=== PATIENT | female | born 1930 | race Caucasian/White ===

== ENCOUNTER 2020-04-14 22:58 | Inpatient (IN) | payer MEDICARE, MEDICAID ==
[~2020-04-14] VITALS: Ht 154.9 cm; Wt 91.2 kg
[2020-04-14] MEDS ORDERED: MORPHINE SULFATE 4 MG/ML CPJ (NOT FOR IM USE) IV STA (23:17)
[2020-04-14] MEDS ORDERED: ONDANSETRON HCL 4MG/2ML INJ IV STA (23:17)
[2020-04-14 23:46] LABS: BASOPHILS % 0.6 % (0.0-2.0); EOSINOPHILS % 2.5 % (0.0-5.0); HEMATOCRIT. 33.4 % (36.0-48.0); HEMOGLOBIN. 10.8 g/dL (12.0-16.0); LYMPHOCYTES % 25.5 % (20.0-50.0); MEAN CORPUSCULAR HEMOGLOBIN 27.3 pg (28.0-32.0); MEAN PLATELET VOLUME 8.9 fl (7.4-10.4); MONOCYTES % 4.6 % (2.0-8.0); NEUTROPHILS % 66.8 % (40.0-76.0); PLATELET 529 x1000/uL (130-400); RED BLOOD CELL COUNT 3.93 mill/uL (4.2-5.4)
[2020-04-14 23:50] LABS: CHLORIDE 101 mEq/L (98-107)
[2020-04-14] MEDS: NITROGLYCERIN 0.4MG TABLET SL SL PRN ×2 (23:50→23:55)
[2020-04-14 23:55] LABS: PARTIAL THROMBOPLASTIN TIME 27.1 sec (23.4-31.0); PROTHROMBIN TIME 10.2 sec (9.6-11.0)
[2020-04-15] MEDS ORDERED: HYDROMORPHONE HCL/PF 2MG/ML CPJ IV ONE
[2020-04-15] MEDS ORDERED: FUROSEMIDE 100MG/10ML VIAL IVP SCH (00:15)
[2020-04-15] MEDS ORDERED: NITROGLYCERIN 50MG PREMIX 250 ML IV ONE (00:15)
[2020-04-15] MEDS ORDERED: CALCIUM GLUCONATE 100MG/ML 10ML VIAL IV SCH (01:00)
[2020-04-15 08:00] VITALS: BP 145/60
[2020-04-15 08:30] VITALS: BP 136/74
[2020-04-15] MEDS ORDERED: ACETAMINOPHEN 325MG TABLET PO PRN (09:30)
[2020-04-15] MEDS ORDERED: ONDANSETRON HCL 4MG/2ML INJ IV PRN (09:30)
[2020-04-15] MEDS ORDERED: DEXTROSE 50% WATER 50ML SYRINGE IV PRN (09:30)
[2020-04-15 12:00] VITALS: BP 137/64
[2020-04-15] MEDS: BLOOD SUGAR DIAGNOSTIC STRIP TEST SCH ×3 (12:33→21:07)
[2020-04-15] MEDS: INSULIN LISPRO 100 UNITS/ML SUBCUT SCH ×3 (12:40→21:00)
[2020-04-15 16:00] VITALS: BP 133/68
[2020-04-15] MEDS: FUROSEMIDE 40MG/4ML VIAL IVP SCH (17:41)
[2020-04-15 20:00] VITALS: BP 100/52
[2020-04-15] MEDS: ENOXAPARIN 100MG/ML SYR SUBCUT SCH (21:43)
[2020-04-16] VITALS (7 sets, daily range): BP systolic 103–156; BP diastolic 50–74
[2020-04-16] MEDS: INSULIN LISPRO 100 UNITS/ML SUBCUT SCH ×4 (06:00→21:00)
[2020-04-16] MEDS: BLOOD SUGAR DIAGNOSTIC STRIP TEST SCH ×4 (06:30→21:18)
[2020-04-16] MEDS ORDERED: ENOXAPARIN 100MG/ML SYR SUBCUT SCH (08:45)
[2020-04-16] MEDS: FUROSEMIDE 40MG/4ML VIAL IVP SCH ×2 (09:25→15:23)
[2020-04-16] MEDS: ASPIRIN 81MG TABLET PO SCH (09:25)
[2020-04-16] MEDS: CLOPIDOGREL 75MG TABLET PO SCH (10:43)
[2020-04-16] MEDS: LOSARTAN POTASSIUM 25 MG TABLET PO SCH (15:23)
[2020-04-16 16:38] LABS: BASOPHILS % 0.5 % (0.0-2.0); HEMATOCRIT. 37.3 % (36.0-48.0); HEMOGLOBIN. 12.2 g/dL (12.0-16.0); LYMPHOCYTES % 19.7 % (20.0-50.0); MEAN CORPUSCULAR HEMOGLOBIN 27.5 pg (28.0-32.0); MEAN CORPUSCULAR VOLUME 84.3 fL (81.0-99.0); MEAN PLATELET VOLUME 8.8 fl (7.4-10.4); MONOCYTES % 5.8 % (2.0-8.0); PLATELET 515 x1000/uL (130-400); RED BLOOD CELL COUNT 4.42 mill/uL (4.2-5.4); RED CELL DISTRIBUTION WIDTH 15.4 % (11.6-14.6)
[2020-04-16 17:25] LABS: CHLORIDE 98 mEq/L (98-107)
[2020-04-16] MEDS ORDERED: ATORVASTATIN CALCIUM 20MG TABLET PO SCH (21:00)
[2020-04-16] MEDS: CARVEDILOL 3.125 MG TABLET PO SCH (21:18)
[2020-04-16] MEDS: POTASSIUM CHLORIDE 20MEQ TABLET SR PO SCH (21:26)
[2020-04-16] MEDS: ENOXAPARIN 100MG/ML SYR SUBCUT SCH (21:46)
[2020-04-17 03:42] VITALS: BP 137/56
[2020-04-17] MEDS: INSULIN LISPRO 100 UNITS/ML SUBCUT SCH ×2 (07:39→12:00)
[2020-04-17] MEDS: BLOOD SUGAR DIAGNOSTIC STRIP TEST SCH ×2 (07:39→12:00)
[2020-04-17 08:00] VITALS: BP 128/90
[2020-04-17] MEDS: CARVEDILOL 3.125 MG TABLET PO SCH (08:32)
[2020-04-17] MEDS: FUROSEMIDE 40MG/4ML VIAL IVP SCH (08:32)
[2020-04-17] MEDS: LOSARTAN POTASSIUM 25 MG TABLET PO SCH (08:33)
[2020-04-17] MEDS: CLOPIDOGREL 75MG TABLET PO SCH (08:33)
[2020-04-17] MEDS: ASPIRIN 81MG TABLET PO SCH (08:33)
[2020-04-17] MEDS: POTASSIUM CHLORIDE 20MEQ TABLET SR PO SCH (08:33)
[2020-04-17 12:00] VITALS: BP 108/45
[2020-04-17] MEDS ORDERED: POTA20TA82 PO (12:16)
[2020-04-17] MEDS ORDERED: COR3 PO (12:16)
[2020-04-17] MEDS ORDERED: LOSA25TA3 PO (12:16)
[2020-04-17] MEDS ORDERED: CLOP75TA15 PO (12:16)
[2020-04-17] MEDS ORDERED: FURO-151 MT (12:16)
[2020-04-17] MEDS ORDERED: ASPI-1160 PO (12:16)
[2020-04-17 14:22] VITALS: BP 108/45
== END 2020-04-17 17:05 | disposition home or self-care (01) | DRG 280 ==
LOC: ER 22:58 → 8WST 04-15 00:25 → ENRESERV 04-15 07:42
PROVIDERS: ADMIT Internal Medicine; ATTEND Internal Medicine
DX: I21.4 Non-ST elevation (NSTEMI) myocardial infarction (principal); J18.9 Pneumonia, unspecified organism; J96.00 Acute respiratory failure, unspecified whether with hypoxia or hypercapnia; I50.21 Acute systolic (congestive) heart failure; E44.1 Mild protein-calorie malnutrition; E87.1 Hypo-osmolality and hyponatremia; I11.0 Hypertensive heart disease with heart failure; Z20.822 Contact with and (suspected) exposure to COVID-19; D64.9 Anemia, unspecified; E11.9 Type 2 diabetes mellitus without complications; I44.7 Left bundle-branch block, unspecified
CPT/HCPCS: 36415; 71045; 80048; 80053; 82962; 83036; 83880; 84145; 84484; 85025; 85379; 87426; 93005; 93306; 99291; J0610; J1170; J1650; J1940; J2270; J2405; J3490; A4315